=== PATIENT | female | born 1985 | race Caucasian/White ===

== ENCOUNTER 2021-03-25 21:20 | Emergency (ER) | payer OTHER ==
[~2021-03-25] VITALS: Ht 149.9 cm; Wt 45.4 kg
[2021-03-25 21:59] LABS: BASOPHILS % (AUTO) 0.2 % (0.0-2.0); EOSINOPHILS % (AUTO) 0.7 % (0.0-6.0); HEMATOCRIT 35 % (33-45); HEMOGLOBIN 11.8 g/dL (11.5-14.8); LYMPHOCYTES # (AUTO) 2.1 K/uL (0.8-4.8); LYMPHOCYTES % (AUTO) 13.7 % (20.0-44.0); MEAN CORPUSCULAR HGB CONC 34 g/dl (31.0-36.0); MEAN CORPUSCULAR VOLUME 109 fL (82-100); MONOCYTES # (AUTO) 0.6 K/uL (0.1-1.30); MONOCYTES % (AUTO) 3.9 % (2.0-12.0); NEUTROPHILS # (AUTO) 12.7 K/uL (1.8-8.9); NEUTROPHILS % (AUTO) 81.5 % (43.0-81.0); PLATELET COUNT (AUTO) 277 K/uL (150-450); RED BLOOD CELL COUNT(AUTO) 3.18 MIL/uL (4.0-5.2); WHITE BLOOD COUNT (AUTO) 15.6 K/uL (4.3-11.0)
--- NOTE | 2021-03-25 22:00 | NUR ---
BIB SELF C/O VAGINAL BLEEDING. PT IS CURRENTLY . PLACED INTO A GOWN AND MONITOR ALL VSS. MD WAS AT BEDSIDE FOR EVAL.
--- NOTE | 2021-03-25 22:10 | NUR ---
Patient does not wish to proceed with medical care. Patient given information related to possible complications, up to and including , which could occur as a result of leaving the hospital at this time. Patient verbalizes understanding of risks involved due to leaving against medical advice. Patient left ER before signing AMA form.
[2021-03-25 22:20] LABS: CALCIUM, SERUM 9.9 mg/dL (8.5-10.1); CREATININE 0.6 mg/dL (0.6-1.3); POTASSIUM 3.6 mmol/L (3.5-5.1)
[2021-03-25 23:21] VITALS: BP 121/78
[2021-03-26 00:14] LABS: LYMPHOCYTES % (MANUAL) 14 % (16-48); MONOCYTES % (MANUAL) 2 % (0-11.0); NEUTROPHILS % (MANUAL) 84 (42-76)
== END 2021-03-25 22:10 | disposition left against medical advice (07) ==
LOC: ER 21:20
DX: O46.93 Antepartum hemorrhage, unspecified, third trimester (principal); R14.0 Abdominal distension (gaseous); Z3A.29 29 weeks gestation of pregnancy
CPT/HCPCS: 36415; 80048-TC; 84702-TC; 85025-TC; 85730-TC; 86850-TC